=== PATIENT | female | born 1995 | race Caucasian/White ===

== ENCOUNTER 2023-01-09 20:53 | Emergency (ER) | payer OTHER ==
[~2023-01-09] VITALS: Ht 152.4 cm; Wt 52.2 kg
[~2023-01-09 20:53] MED LIST: PROC5TAB58 PO; SULF1TAB48 PO
[2023-01-09 21:10] VITALS: BP_SYST 107
[2023-01-09] MEDS ORDERED: NACL 0.9% 1,000 ML IV ONE (21:30)
[2023-01-09 21:42] LABS: BILIRUBIN,URINE NEGATIVE (NEGATIVE); BLOOD, URINE NEGATIVE (NEGATIVE); CLARITY/URINE CLEAR (CLEAR); COLOR,URINE YELLOW (YELLOW); GLUCOSE,URINE NEGATIVE (NEGATIVE); KETONES,URINE NEGATIVE (NEGATIVE); LEUKOCYTE ESTERASE ,URINE NEGATIVE (NEGATIVE); NITRITE, URINE NEGATIVE (NEGATIVE); PH,URINE 6.5 (5.0-8.0); PROTEIN URINE NEGATIVE (NEGATIVE); UROBILINOGEN,URINE 0.2 (0.2-1.0)
[2023-01-09 21:45] LABS: BASOPHILS % (AUTO) 0.2 % (0.0-2.0); EOSINOPHILS % (AUTO) 0.2 % (0.0-4.0); HEMATOCRIT 38.4 % (36-48); HEMOGLOBIN 12.7 g/dL (12.0-16.0); MEAN CORPUSCULAR HEMOGLOBIN 29 pg (27-31); MEAN CORPUSCULAR HGB CONC 33 % (32-36); MEAN CORPUSCULAR VOLUME 88 fL (79.0-98.0); MONOCYTES # (AUTO) 0.1 K/uL (0.0-1.0); MONOCYTES % (AUTO) 0.8 % (1.7-9.3); NEUTROPHILS # (AUTO) 8.7 K/uL (1.8-7.7); NEUTROPHILS % (AUTO) 88.8 % (40.0-70.0); PLATELET COUNT (AUTO) 219 K/uL (130-430); RED BLOOD CELL COUNT(AUTO) 4.38 MIL/uL (4.2-6.2); RED CELL DISTRIBUTION WIDTH 13.2 % (9.0-15.0); WHITE BLOOD COUNT (AUTO) 9.8 K/uL (4.8-10.8)
[2023-01-09] MEDS ORDERED: ONDANSETRON HCL 4 MG/2 ML VIAL IVP ONE (21:45)
[2023-01-09 21:50] LABS: HCG,QUAL RESULT NEGATIVE (NEGATIVE)
[2023-01-09 21:57] LABS: CALCIUM 8.7 mg/dL (8.4-11.0); CREATININE 0.9 mg/dL (0.55-1.30)
[2023-01-09 22:01] LABS: TOTAL BILIRUBIN 0.6 mg/dL (0.0-1.0)
[2023-01-09 23:26] VITALS: BP_SYST 105
== END 2023-01-09 23:26 | disposition home or self-care (01) ==
LOC: SED 20:53
DX: R10.33 Periumbilical pain (principal); R11.0 Nausea; Z79.899 Other long term (current) drug therapy
CPT/HCPCS: 99284; 74176; 96360; 80053; 84703; 85025; 36415; 76376; 81003; J2405; J7030